=== PATIENT | male | born 1945 | race Caucasian/White ===

== ENCOUNTER 2016-10-20 08:19 | Day surgery (SDC) | payer MEDICARE, BC ==
--- NOTE | ~2016-10-20 | EGD ---
EGD REPORT [facility] [address] [place] [address] NAME: FERNANDO OWENS : [birth year] STATUS : REG [facility]#: [id number] AGE: 71 ADM/REG DATE : 10/20/16 MR#: [id number] REPORT SERV DATE: 10/20/16 DICTATED BY: MODESTA FONTENOT DATE: 10/20/16 REPORT STATUS : Draft TRANSCRIBED BY: IATARH [facility] DATE: 10/20/16 Endoscopy Center Patient Name: Fernando Owens. Date of : 1945 Attending MD: MODESTA FONTENOT MD Procedure Date No Time: 10/20/2016 Procedure: Colonoscopy Indications: Colon cancer screening in patient at increased risk: Family history of colon polyps, High risk colon cancer surveillance: Personal history of colonic polyps Referring MD: ROBBIN SCHWARTZ Medicines: Monitored Anesthesia Care Complications: No immediate complications. Procedure: Pre-Anesthesia Assessment: - ASA Grade Assessment: III - A patient with severe systemic disease. After I obtained informed consent, the scope was passed under direct vision. Throughout the procedure, the patient's blood pressure, pulse, and oxygen saturations were monitored continuously. The [id number] was introduced through the anus and advanced to the cecum, identified by appendiceal orifice and ileocecal valve. The colonoscopy was performed with moderate difficulty due to significant looping and the patient's body habitus. The patient tolerated the procedure well. The quality of the bowel preparation was adequate. Findings: The digital rectal exam was normal. Pertinent negatives include no palpable rectal lesions. Diverticula were found in the sigmoid colon. Hemorrhoids were found during retroflexion. Three sessile polyps were found in the transverse colon. The polyps were 3 to 5 mm in size. These polyps were removed with a cold biopsy forceps. Resection and retrieval were complete. A sessile polyp was found in the ascending colon. The polyp was 6 mm in size. The polyp was removed with a cold biopsy forceps. Resection and retrieval were complete. Impression: - Diverticulosis in the sigmoid colon. - Hemorrhoids. - Three 3 to 5 mm polyps in the transverse colon. Resected and retrieved. - One 6 mm polyp in the ascending colon. Resected and retrieved. EGD REPORT [address] [address] NAME: FERNANDO OWENS : [birth year] STATUS : REG [facility] [place] PAT#: [id number] AGE: 71 ADM/REG DATE : 10/20/16 MR#: [id number] REPORT SERV DATE: 10/20/16 DICTATED BY: MODESTA FONTENOT DATE: 10/20/16 REPORT STATUS : Draft TRANSCRIBED BY: Abril DATE: 10/20/16 Recommendation: - Patient has a contact number available for emergencies. The signs and symptoms of potential delayed complications were discussed with the patient. Return to normal activities tomorrow. Written discharge instructions were provided to the patient. - Regular diet. - Continue present medications. - Repeat colonoscopy in 3 - 5 years for surveillance based on pathology results. - Return to GI clinic PRN. Procedure Code(s): --- Professional --- 95193, Colonoscopy, flexible, proximal to splenic flexure; with biopsy, single or multiple Diagnosis Code(s): --- Professional --- K64.9, Unspecified hemorrhoids K57.30, Diverticulosis of large intestine without perforation or abscess without bleeding D12.2, Benign neoplasm of ascending colon D12.3, Benign neoplasm of transverse colon Z12.11, Encounter for screening for malignant neoplasm of colon Z83.71, Family history of colonic polyps Z86.010, Personal history of colonic polyps CPT copyright 2013 [employer]. All rights reserved. The codes documented in this report are preliminary and upon hand mixer review may be revised to meet current compliance requirements. MODESTA FONTENOT MD 10/20/2016 10:06 AM This report has been signed electronically. Number of Addenda: 0 Note Initiated On: 10/20/2016 9:30 AM Scope Withdrawal Time 0 hours 10 minutes 1 second [id number] [place] [id number]
[~2016-10-20 08:19] MED LIST: ACTOS45 PO; AMARYL2 PO; ASAB PO; BIST PO; BRILINTA90 MG PO; BUM2 PO; CLEOCIN300 MG PO; CRESTOR10 PO; CYMBALTA60 PO; DSS PO; FISH OIL1200 MG PO; FLOMAX4 PO; FLORASTOR250 MG PO; GLUCOPHAGE1000 MG PO; GLUCOTROL5 PO; HUMAMIXPEN SC; HYDROCHLOROTHIAZIDE PO; HYT2 PO; INDE80 PO; INSNOVR; K500 PO; KLOR-CON 1010 MEQ PO; KLOR-CON M2020 MEQ; KLOR-CON M2020 MEQ PO; LANTUS; LANTUS SC; LANTUS SQ; LIPITOR20 PO; LIPITOR80 MG PO; LOTENSIN HCT1 TA3 PO; MIRALAXPKT PO; MOEXIPRIL PO; NEUR600 PO; NITROSTAT0.4 MG SL; NORCO1 TA1 PO; NOVOLOG SC; NOVOPEN SC; PLAVIX PO; TRAZODONE150 MG PO; TRAZODONE300 MG PO; VICODINTAB PO; VICTOZA18 MG/3 ML SC; VITAMIN B-121000 MC1 SL; VITAMIN D31000 UNIT PO; X5 PO; Z5; ZANTAC150 MG PO; ZOCOR40 PO; ZOL100 PO
== END 2016-10-20 23:59 | disposition home health service (06) ==
LOC: DMU 08:19
PROVIDERS: Internal Medicine Gastroenterology
PROC: 0DBK8ZX Excision of Ascending Colon, Via Natural or Artificial Opening Endoscopic, Diagnostic (ICD-10-PCS; 2016-10-20)
PROC: 0DBL8ZX Excision of Transverse Colon, Via Natural or Artificial Opening Endoscopic, Diagnostic (ICD-10-PCS; principal; 2016-10-20 09:30)
DX: Z12.11 Encounter for screening for malignant neoplasm of colon (principal); D12.2 Benign neoplasm of ascending colon; D12.3 Benign neoplasm of transverse colon; K57.30 Diverticulosis of large intestine without perforation or abscess without bleeding; K64.9 Unspecified hemorrhoids; I10 Essential (primary) hypertension; I25.10 Atherosclerotic heart disease of native coronary artery without angina pectoris; I25.2 Old myocardial infarction; E78.00 Pure hypercholesterolemia, unspecified; I73.9 Peripheral vascular disease, unspecified; G47.33 Obstructive sleep apnea (adult) (pediatric); K21.9 Gastro-esophageal reflux disease without esophagitis; F32.9 Major depressive disorder, single episode, unspecified; E11.9 Type 2 diabetes mellitus without complications; Z83.71 Family history of colonic polyps; Z86.010 Personal history of colon polyps; Z88.5 Allergy status to narcotic agent; Z88.8 Allergy status to other drugs, medicaments and biological substances
CPT/HCPCS: 82962; 88305